=== PATIENT | male | born 1960 | race Caucasian/White ===

== ENCOUNTER 2020-05-02 13:04 | Emergency (ER) | payer SELFPAY ==
[2020-05-02] MEDS ORDERED: MIRALAX17 GM PO (13:33)
[2020-05-02] MEDS ORDERED: PRINIVIL10 M1 (13:33)
[2020-05-02] MEDS ORDERED: MEGESTROL ACETA20 M1 (13:33)
[2020-05-02] MEDS ORDERED: ROXICODONE 55 MG/TAB (13:33)
[2020-05-02 13:58] LABS: HEMATOCRIT 39.7 % (42.0-52.0); HEMOGLOBIN 13.3 g/dL (13.5-18.0); MEAN CELL VOLUME 99 fl (78-100); MEAN CORPUSCULAR HEMOGLOBIN 33 pg (27-31); MEAN CORPUSCULAR HGB CONC 34 g/dL (33-37); MEAN PLATELET VOLUME 9.7 fl (7.4-10.4); PLATELET COUNT 176 K/mm3 (130-400); RED BLOOD COUNT 4.01 M/mm3 (4.20-5.60); RED CELL DISTRIBUTION WIDTH 15.4 % (11.5-14.5); WHITE BLOOD COUNT 10.4 K/mm3 (4.8-10.8)
[2020-05-02 13:59] LABS: ALBUMIN 3.4 g/dL (3.4-4.8); POTASSIUM 5.1 mmol/L (3.5-5.1)
[2020-05-02 14:01] LABS: CALCIUM 11.2 mg/dL (8.3-10.5)
[2020-05-02 14:04] LABS: TOTAL BILIRUBIN 2.2 mg/dL (0.2-1.2)
[2020-05-02 14:06] LABS: PROTHROMBIN TIME 12.1 SECONDS (9.0-12.0)
[2020-05-02 14:08] LABS: BAND 7 % (0-10); LYMPHOCYTE 14 % (20-51); MONOCYTE 4 % (3-10); NEUTROPHILS 75 % (42-75)
[2020-05-02 15:51] VITALS: BP 125/89
== END 2020-05-02 15:52 | disposition home or self-care (01) ==
LOC: ED 13:04
PROVIDERS: Physician Assistant
DX: E87.1 Hypo-osmolality and hyponatremia (principal); C22.1 Intrahepatic bile duct carcinoma; I10 Essential (primary) hypertension; Z87.891 Personal history of nicotine dependence
CPT/HCPCS: J7030; Q9967

== ENCOUNTER 2020-05-11 13:16 | Emergency (ER) | payer SELFPAY ==
[~2020-05-11] VITALS: Ht 182.9 cm; Wt 85.4 kg
[~2020-05-11 13:16] MED LIST: MEGESTROL ACETA20 M1; MIRALAX17 GM PO; PRINIVIL10 M1; ROXICODONE 55 MG/TAB
[2020-05-11 13:53] LABS: HEMATOCRIT 42.8 % (42.0-52.0); HEMOGLOBIN 14.1 g/dL (13.5-18.0); MEAN CELL VOLUME 99 fl (78-100); MEAN CORPUSCULAR HEMOGLOBIN 33 pg (27-31); MEAN CORPUSCULAR HGB CONC 33 g/dL (33-37); MEAN PLATELET VOLUME 9.4 fl (7.4-10.4); PLATELET COUNT 209 K/mm3 (130-400); RED BLOOD COUNT 4.31 M/mm3 (4.20-5.60); RED CELL DISTRIBUTION WIDTH 15.4 % (11.5-14.5); WHITE BLOOD COUNT 12.8 K/mm3 (4.8-10.8)
[2020-05-11 14:01] LABS: ALBUMIN 3.3 g/dL (3.4-4.8); POTASSIUM 4.8 mmol/L (3.5-5.1); SODIUM 130 mmol/L (136-145)
[2020-05-11 14:02] LABS: CALCIUM 11.5 mg/dL (8.3-10.5)
[2020-05-11 14:03] LABS: GLUCOSE 123 mg/dL (75-110); TOTAL PROTEIN 7.4 g/dL (6.2-8.1)
[2020-05-11 14:04] LABS: CARBON DIOXIDE 18 mmol/L (23-31)
[2020-05-11 14:05] LABS: TOTAL BILIRUBIN 3.4 mg/dL (0.2-1.2)
[2020-05-11 14:08] LABS: LYMPHOCYTE 8 % (20-51); MONOCYTE 5 % (3-10); NEUTROPHILS 87 % (42-75)
[2020-05-11 14:09] LABS: AST-SGOT 278 U/L (5-34)
[2020-05-11 14:10] LABS: ALT/SGPT 59 U/L (0-55)
[2020-05-11 15:05] LABS: TROPONIN-I < 0.03 ng/mL (<0.030)
[2020-05-11 16:45] VITALS: BP 123/58
== END 2020-05-11 16:38 | disposition short-term general hospital (02) ==
LOC: ED 13:16
PROVIDERS: Nurse Practitioner
DX: C22.1 Intrahepatic bile duct carcinoma (principal); R18.8 Other ascites; I10 Essential (primary) hypertension; Z20.822 Contact with and (suspected) exposure to COVID-19